=== PATIENT | male | born 1980 | race Caucasian/White ===

== ENCOUNTER 2016-12-29 17:58 | Emergency (ER) | payer OTHER ==
[~2016-12-29] VITALS: Ht 175.3 cm; Wt 104.3 kg
[2016-12-29 18:40] VITALS: BP 154/78
[2016-12-29] MEDS ORDERED: HYDR-971 PO (20:13)
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
--- NOTE | 2016-12-30 08:00 | RAD ---
Indication injury, pain. Internally and externally rotated views of the left shoulder were obtained as well as a Y view. No bony abnormality is seen
--- NOTE | 2016-12-30 08:14 | RAD ---
Indication injury, pain. AP oblique and lateral views of the left hand were obtained. No acute bony finding is seen. Chronic deformity associated with the fourth metacarpal is noted.
--- NOTE | 2016-12-30 08:15 | RAD ---
Indication pain. Injury. AP oblique and lateral views of the left elbow were obtained. There is a transverse lucency associated with the radial neck compatible with a nondisplaced fracture. Significant joint fluid is not seen. No additional bony abnormality is identified. IMPRESSION: Nondisplaced traumatic fracture involving the radial neck
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
== END 2016-12-29 20:22 | disposition home or self-care (01) ==
LOC: ER 17:58
DX: S52.122A Displaced fracture of head of left radius, initial encounter for closed fracture (principal); S40.022A Contusion of left upper arm, initial encounter; V86.69XA Passenger of other special all-terrain or other off-road motor vehicle injured in nontraffic accident, initial encounter; Y93.89 Activity, other specified; Y99.8 Other external cause status; Y92.89 Other specified places as the place of occurrence of the external cause
CPT/HCPCS: 73030; 73080; 73090; 73130; 99284